=== PATIENT | female | born 2005 | race Caucasian/White ===

== ENCOUNTER → 2024-05-02 | Outpatient (REF) | payer BC, OTHER ==
[2024-05-02 15:02] LABS: Trichomonas vaginalis (AMP) NOT DETECTED (NEGATIVE)
[2024-05-02 15:26] LABS: GC DNA AMPLIFICATION NEGATIVE (NEGATIVE)
== END ==
LOC: M SFHCWAGY 12:43
PROVIDERS: ATTEND Obstetrics & Gynecology
DX: Z11.3 Encounter for screening for infections with a predominantly sexual mode of transmission (principal)